=== PATIENT | female | born 1945 | race Caucasian/White ===

== ENCOUNTER 2016-04-27 15:37 | Emergency (ER) | payer MEDICARE, OTHER ==
[~2016-04-27] VITALS: Ht 172.7 cm; Wt 68.1 kg
[2016-04-27] MEDS ORDERED: SODIUM CHLORIDE FLUSH 10 ML SYR IV PRN (15:50)
[2016-04-27] MEDS ORDERED: SODIUM CHLORIDE FLUSH 3 ML SYR IV PRN (15:50)
[2016-04-27] MEDS ORDERED: UBID100C8 PO (16:19)
[2016-04-27] MEDS ORDERED: OXYB5TAB PO (16:19)
[2016-04-27] MEDS ORDERED: LEVO50TA6 PO (16:19)
[2016-04-27] MEDS ORDERED: OMEP20CA12 PO (16:19)
[2016-04-27] MEDS ORDERED: ASPI325T4 PO (16:21)
--- NOTE | 2016-04-27 16:25 | NUR ---
PATIENT CONTINUES TO REFUSE SALINE LOCK START. LAB HERE TO DRAW BLOOD SPECIMEN.
[2016-04-27 16:42] LABS: BASOPHILS % (AUTO) 0 % (0-2); EOSINOPHILS # (AUTO) 0.4 10^3uL; EOSINOPHILS % (AUTO) 4 % (0-4); LYMPHOCYTES # (AUTO) 2.8 X10^3; MEAN CORPUSCULAR HEMOGLOBIN 28.8 PG (26.0-34.0); MEAN CORPUSCULAR HGB CONC 32.4 g/dL (31.0-37.0); MEAN CORPUSCULAR VOLUME 89 FL (80-100); MONOCYTES % (AUTO) 11 % (3-11); NEUTROPHILS # (AUTO) 5.1 X10^3; NEUTROPHILS % (AUTO) 55 % (51-67); PLATELET COUNT 229 10^3uL (150-450); WHITE BLOOD COUNT 9.33 10^3uL (4.0-11.0)
[2016-04-27 16:55] LABS: ALKALINE PHOSPHATASE 85 U/L (38-126); ANION GAP 14.4 MEQ/L (3-15); BUN/CREATININE RATIO 21 (10-20); CALCULATED IONIZED CALCIUM 4.2 mg/dL (3.8-4.6); TOTAL PROTEIN 6.5 g/dL (6.4-8.5)
--- NOTE | 2016-04-27 17:00 | Diagnostic Imaging Report ---
INDICATION: Chest pain. TECHNIQUE: A frontal chest was obtained at 4:47 PM. FINDINGS: The heart and mediastinal silhouette are normal in appearance. The lungs are clear. There is no pneumothorax or pleural fluid. IMPRESSION: Negative chest. Dictated by: Dictated on workstation # [id number]
--- NOTE | 2016-04-27 18:30 | NUR ---
Patient sitting on ER cart visiting with spouse. Has verbalized being ready to go home.
--- NOTE | 2016-04-27 19:08 | NUR ---
Patient consents to EKG and SpO2 monitoring as requested by Dr. Stewart/Dr. Menon while ambulating in hallways.
--- NOTE | 2016-04-27 19:20 | NUR ---
[id number]: Ambulated from ER-1 to ER-[address] to South end of Radiology Hallway and back to ER-1 without problem. No chest discomfort, SOA, nausea, light-headedness, or other problem.
[2016-04-27 19:59] VITALS: BP 168/67
== END 2016-04-27 19:41 | disposition home or self-care (01) ==
LOC: ED 15:41
DX: R07.9 Chest pain, unspecified (principal)
CPT/HCPCS: 36415; 71010; 80053; 84484; 85025; 93005; 99283; A9270; 93010; 99285

== ENCOUNTER → 2016-06-28 | Outpatient (CLI) | payer MEDICARE, OTHER ==
[2016-06-28 08:59] LABS: BASOPHILS % (AUTO) 1 % (0-2); EOSINOPHILS # (AUTO) 0.2 10^3uL; EOSINOPHILS % (AUTO) 4 % (0-4); LYMPHOCYTES # (AUTO) 1.8 X10^3; MEAN CORPUSCULAR HEMOGLOBIN 29.1 PG (26.0-34.0); MEAN CORPUSCULAR HGB CONC 33.9 g/dL (31.0-37.0); MEAN CORPUSCULAR VOLUME 86 FL (80-100); MEAN PLATELET VOLUME 9.4 FL (6.0-9.5); MONOCYTES # (AUTO) 0.6 X10^3; MONOCYTES % (AUTO) 10 % (3-11); NEUTROPHILS # (AUTO) 2.8 X10^3; NEUTROPHILS % (AUTO) 52 % (51-67); PLATELET COUNT 201 10^3uL (150-450); WHITE BLOOD COUNT 5.47 10^3uL (4.0-11.0)
[2016-06-28 09:26] LABS: ANION GAP 15.8 MEQ/L (3-15); CALCULATED IONIZED CALCIUM 4.2 mg/dL (3.8-4.6); TOTAL PROTEIN 6.8 g/dL (6.4-8.5)
== END ==
LOC: LAB 08:45
PROVIDERS: ATTEND Internal Medicine
DX: Z00.00 Encounter for general adult medical examination without abnormal findings (principal); E03.8 Other specified hypothyroidism; K21.9 Gastro-esophageal reflux disease without esophagitis; M19.041 Primary osteoarthritis, right hand; F39 Unspecified mood [affective] disorder
CPT/HCPCS: 36415; 80053; 80061; 84443; 85025

== ENCOUNTER → 2016-07-05 | Outpatient (CLI) | payer MEDICARE, OTHER | LOC: RAD 08:09 | PROVIDERS: ATTEND Internal Medicine | DX: Z12.31 Encounter for screening mammogram for malignant neoplasm of breast (principal) ==